=== PATIENT | male | born 1995 | race American Indian/Alaskan Native ===

== ENCOUNTER 2021-05-29 08:32 | Emergency (ER) | payer SELFPAY ==
[2021-05-29] MEDS ORDERED: LORazepam 1 MG Tab PO ONE (08:35)
[2021-05-29] MEDS ORDERED: Alum Hydro/Mag Hydro/Simeth XS 15 ML, Lidocaine 2% 5 ML PO ONE ×2 (08:37)
--- NOTE | 2021-05-29 08:38 | EDM.PDOC ---
ED HPI GENERAL MEDICAL PROBLEM - General Stated Complaint: EMS Time Seen by Provider: 05/29/21 08:34 Source of Information: Reports: Patient, EMS History Limitations: Reports: No Limitations - History of Present Illness INITIAL COMMENTS - FREE TEXT/NARRATIVE: 25-year-old male past medical history anxiety, ADHD presents for presumptive anxiety attack. Patient does endorse drinking heavily last night. He states that he had about 1 pint of vodka. He is staying at a local hotel. He went into the hotel lobby and was apparently acting erratically and asking the hotel staff for help. He was initially refusing EMS but reluctantly agreed for them to call for help around 8 AM. Patient has difficulty describing what he was feeling. He states that his entire body was numb and he felt panicky. He felt short of breath. He notes that symptoms are substantially improved but he still feels very anxious and mildly short of breath. He denies any cough or recent illness. He did say that he was having some chest pain during the episode but has difficulty describing it. - Related Data Allergies Allergy/AdvReac Type Severity Reaction Status Date / Time No Known Allergies Allergy Verified 05/29/21 08:55 Home Meds: Home Meds Lisdexamfetamine Dimesylate [Vyvanse] 10 mg PO 05/29/21 [History] Mirtazapine [Remeron] 15 mg PO 05/29/21 [History] Past Medical History - Past Health History Medical/Surgical History: Denies Medical/Surgical History ED ROS GENERAL - Review of Systems Review Of Systems: Comprehensive ROS is negative, except as noted in HPI. ED EXAM, GENERAL - Physical Exam Exam: See Below Exam Limited By: No Limitations General Appearance: Alert, WD/WN, No Apparent Distress, Anxious Ears: Hearing Grossly Normal Throat/Mouth: Normal Voice, No Airway Compromise Head: Atraumatic, Normocephalic Respiratory/Chest: No Respiratory Distress, Lungs Clear, Normal Breath Sounds, No Accessory Muscle Use Cardiovascular: Normal Peripheral Pulses, Regular Rate, Rhythm GI/Abdominal: Soft, Non-Tender Extremities: Normal Inspection Neurological: Alert, Normal Cognition, Normal Gait Psychiatric: Normal Affect, Normal Mood, Anxious Skin Exam: Warm, Dry, Intact, Normal Color #1 Interpretation EKG Date: 05/29/21 Time: 08:33 Rhythm: NSR Rate (Beats/Min): 75 Burt: Normal P-Wave: Present QRS: Normal ST-T: Normal QT: Normal NJ/PQ Interval: 162 EKG Interpretation Comments: normal EKG, no ischemic changes Course - Vital Signs Last Recorded V/S: Last Vital Signs Temp 97.9 F 05/29/21 08:43 Pulse 89 05/29/21 08:43 Resp 20 05/29/21 08:43 BP 174/107 H 05/29/21 08:43 Pulse Ox 98 05/29/21 08:43 - Orders/Labs/Meds Orders: Active Orders 24 hr Category Date Time Status Saline Lock Insert [OM.PC] Stat Oth 05/29/21 08:35 Ordered Labs: Laboratory Tests 05/29/21 05/29/21 05/29/21 Range/Units 08:40 08:49 08:49 WBC 4.59 (4.0-11.0) K/uL RBC 4.75 (4.50-5.90) M/uL Hgb 14.3 (13.0-17.0) g/dL Hct 41.7 (38.0-50.0) % MCV 87.8 (80.0-98.0) fL MCH 30.1 (27.0-32.0) pg MCHC 34.3 (31.0-37.0) g/dL RDW Std Deviation 43.9 (28.0-62.0) fl RDW Coeff of Sai 14 (11.0-15.0) % Plt Count 136 L (150-400) K/uL MPV 9.40 (7.40-12.00) fL Neut % (Auto) 52.3 (48.0-80.0) % Lymph % (Auto) 39.9 (16.0-40.0) % [place] % (Auto) 5.4 (0.0-15.0) % Eos % (Auto) 2.0 (0.0-7.0) % Baso % (Auto) 0.4 (0.0-1.5) % Neut # (Auto) 2.4 (1.4-5.7) K/uL Lymph # (Auto) 1.8 (0.6-2.4) K/uL [place] # (Auto) 0.3 (0.0-0.8) K/uL Eos # (Auto) 0.1 (0.0-0.7) K/uL Baso # (Auto) 0.0 (0.0-0.1) K/uL Nucleated RBC % 0.0 /100WBC Nucleated RBCs # 0 K/uL Sodium 138 (136-148) mmol/L Potassium 2.8 L (3.5-5.1) mmol/L Chloride 99 (98-107) mmol/L Carbon Dioxide 21.7 (21.0-32.0) mmol/L BUN 11 (7.0-18.0) mg/dL Creatinine 1.0 (0.8-1.3) mg/dL Est Cr Clr Drug Dosing 111.94 mL/min Estimated GFR (MDRD) > 60.0 ml/min Glucose 166 H (74-106) mg/dL Calcium 8.1 L (8.5-10.1) mg/dL Troponin I < 0.050 (0.000-0.056) ng/mL TSH, Ultra Sensitive 2.49 (0.36-3.74) uIU/mL Ethyl Alcohol 168 mg/dL SARS-CoV-2 RNA (MAYANK) NEGATIVE (NEGATIVE) Meds: Medications Discontinued Medications Generic Name Dose Route Start Last Admin Trade Name Freq PRN Reason Stop Dose Admin Alum Alexander/Mag Alexander/Simeth XS 0 ml 05/29/21 08:37 05/29/21 09:00 15 ml/ Lidocaine HCl 5 ml PO 05/29/21 08:38 20 each ONETIME ONE Administration Lorazepam 1 mg 05/29/21 08:35 05/29/21 09:00 Lorazepam 1 Mg Tab PO 05/29/21 08:36 1 mg ONETIME ONE Administration Magnesium Oxide 800 mg 05/29/21 09:35 Magnesium Oxide 400 Mg Tab PO 05/29/21 09:36 ONETIME ONE Potassium Chloride 40 meq 05/29/21 09:34 Potassium Chloride 20 Meq Tab.Er PO 05/29/21 09:35 ONETIME ONE - Re-Assessments/Exams Free Text/Narrative Re-Assessment/Exam: 05/29/21 08:38 Patient's symptoms are suggestive of anxiety attack. Will get basic labs to ensure no medical pathology. Will give Ativan for anxiolysis. Will give GI cocktail for potential gastritis related to alcohol abuse. 05/29/21 09:41 Labs show hypokalemia, magnesium and potassium replacement ordered. Patient symptoms suggestive of panic attack with concrement and alcohol abuse. Patient is not clinically intoxicated and is stable for discharge home. Recommend primary care physician follow-up. Departure - Departure Time of Disposition: 09:41 Disposition: Home, Self-Care 01 Condition: Good Clinical Impression: Alcohol abuse, Panic attack - Discharge Information Instructions: Managing Anxiety, Adult, Alcohol Abuse and Dependence Information, Adult Additional Instructions: The following information is given to patients seen in the emergency department who are being discharged to home. This information is to outline your options for follow-up care. We provide all patients seen in our emergency department with a follow-up referral. The need for follow-up, as well as the timing and circumstances, are variable depending upon the specifics of your emergency department visit. If you don't have a primary care physician on staff, we will provide you with a referral. We always advise you to contact your personal physician following an emergency department visit to inform them of the circumstance of the visit and for follow-up with them and/or the need for any referrals to a consulting specialist. The emergency department will also refer you to a specialist when appropriate. This referral assures that you have the opportunity for follow-up care with a specialist. All of these measure are taken in an effort to provide you with optimal care, which includes your follow-up. Under all circumstances we always encourage you to contact your private physician who remains a resource for coordinating your care. When calling for follow-up care, please make the office aware that this follow-up is from your recent emergency room visit. If for any reason you are refused follow-up, please contact the [facility] Emergency Department at and asked to speak to the emergency department charge nurse. Please follow up with your primary care physician. If you do not have a primary care physician, see below: [facility] [address] [place] [id number] [facility] [address] [place] [address] [facility] [address], [place] [address] Sepsis Event Note (ED) - Focused Exam Vital Signs: Vital Signs Temp Pulse Resp BP Pulse Ox 05/29/21 08:43 97.9 F 89 20 174/107 H 98 - My Orders Last 24 Hours: My Active Orders 05/29/21 08:35 Saline Lock Insert [OM.PC] Stat - Assessment/Plan Last 24 Hours: My Active Orders 05/29/21 08:35 Saline Lock Insert [OM.PC] Stat
--- NOTE | 2021-05-29 09:05 | CR ---
INDICATION: Shortness of breath TECHNIQUE: Single view chest. FINDINGS: The lungs are clear. The heart, mediastinum and pulmonary vessels are of normal size. There is no evidence of pleural disease. IMPRESSION: Negative chest. Dictated by Keysha Galvan MD @ 05/29/2021 9:04:04 AM (Electronically Signed)
[2021-05-29 09:32] LABS: BLOOD UREA NITROGEN,BUN 11 mg/dL (7.0-18.0); CARBON DIOXIDE,CO2 21.7 mmol/L (21.0-32.0); CHLORIDE,CL 99 mmol/L (98-107); GLUCOSE RANDOM 166 mg/dL (74-106); POTASSIUM,K 2.8 mmol/L (3.5-5.1); SODIUM,NA 138 mmol/L (136-148)
[2021-05-29] MEDS ORDERED: Potassium Chloride 20 MEQ Tab.ER PO ONE (09:34)
[2021-05-29] MEDS ORDERED: Magnesium Oxide 400 MG Tab PO ONE (09:35)
[2021-05-29 09:49] VITALS: BP 158/101; PULSE 110
== END 2021-05-29 09:51 | disposition home or self-care (01) ==
LOC: MW.ED 08:32
DX: F41.0 Panic disorder [episodic paroxysmal anxiety] (principal); F10.10 Alcohol abuse, uncomplicated; Y90.6 Blood alcohol level of 120-199 mg/100 ml; Z20.822 Contact with and (suspected) exposure to COVID-19
CPT/HCPCS: 36415; 71045; 80048; 80307; 84443; 84484; 85025; 87635; 93005; 99285; A9270; U0002

== ENCOUNTER 2021-05-30 01:19 | Emergency (ER) | payer OTHER ==
[2021-05-30] MEDS ORDERED: Lactated Ringers 1,000 ML IV ONE (01:30)
[2021-05-30] MEDS ORDERED: Ondansetron 4 MG/2 ML SDV IVPUSH ONE (01:31)
[2021-05-30] MEDS ORDERED: ALPRAZolam 0.5 MG Tab PO ONE (01:41)
--- NOTE | 2021-05-30 02:04 | EDM.PDOC ---
ED HPI GENERAL MEDICAL PROBLEM - General Chief Complaint: General Stated Complaint: CRAMPING ON BELLY AREA Time Seen by Provider: 05/30/21 01:32 - History of Present Illness INITIAL COMMENTS - FREE TEXT/NARRATIVE: CHIEF COMPLAINT(S): Multiple complaints HISTORY OF PRESENT ILLNESS: This is a 25-year-old man with a past medical history of ADHD and insomnia on Vyvanse and mirtazapine with recent visit for alcohol intoxication and anxiety/panic attack who comes to the emergency department with a chief complaint of multiple complaints. The patient states that he was here this morning and he returns because he developed shortness of breath instantly and felt like his whole torso was tingling and cramping. He states that he then became weak in his knees and had tingling in his hands and his ears became numb. He states that he feels like his whole body is cramping and then he went into a panic attack. He does not know what is going on. He denies any daily alcohol use and denies any history of alcohol withdrawal. REVIEW OF SYSTEMS: Constitutional: Denies fever, chills. Eyes: Denies eye pain Ears, Nose, Mouth, & Throat: Denies earache Cardiovascular: Denies chest pain Respiratory: Positive for shortness of breath Gastrointestinal: Denies Nausea, vomiting, diarrhea, hematochezia. Genitourinary: Denies hematuria Skin:Denies a rash MSK: Positive for total body cramping. Neurological: Positive for total body paresthesias. Denies blurred vision Psychiatric: Positive for ADHD and insomnia PAST MEDICAL HISTORY: As per history of present illness and as reviewed below otherwise noncontributory. SURGICAL HISTORY: As per history of present illness and as reviewed below otherwise noncontributory. SOCIAL HISTORY: As per history of present illness and as reviewed below otherwise noncontributory. FAMILY HISTORY: As per history of present illness and as reviewed below otherwise noncontributory. EXAMINATION OF ORGAN SYSTEMS/BODY AREAS: Constitutional: Blood pressure is 167/100, heart rate 88, respiratory rate 20 with an oxygen saturation 9 9% on room air. Temperature 36.2 General: Well-appearing man who is in no acute distress Psychiatric: Appears anxious. Cooperative Eyes: No scleral icterus or conjunctival erythema ENMT: Moist mucous membranes. No pharyngeal erythema Cardiovascular: Regular, rate, and rhythm. No gallops, murmurs, or rubs. Bilateral upper extremity pulses symmetric and intact. No peripheral edema. No JVD. Respiratory: Lungs clear to auscultation bilaterally. No wheezes, rales, or rhonchi. Gastrointestinal: Soft, non-tender, non-distended. Normoactive bowel sounds Genitourinary: No suprapubic tenderness Musculoskeletal: Normal range of motion. Skin: No lesions or abrasions. Neurological: Alert, GCS 15 strength and sensation grossly intact in upper and lower extremities bilaterally. MEDICAL DECISION MAKING AND COURSE IN THE ED WITH INTERPRETATION/REVIEW OF DIAGNOSTIC STUDIES: This is a 25-year-old man with a past medical history of ADHD and insomnia with a recent emergency department visit for alcohol intoxication found to have anxiety/panic attack who comes to the emergency department with what appears to be an additional panic attack. The patient is cooperative at this time. Given his electrolyte abnormalities this morning will obtain repeat electrolyte panel. We will provide the patient with Xanax by mouth and reevaluate. I do not believe any further labs or imaging are indicated. The patient symptoms cannot logically be placed together at this time. CMP reveals hyponatremia at 137, hypochloremia 97, hyperglycemia 150, transaminitis with an AST of 278 and ALT of 305. Total bilirubin is elevated 1.8 and there is an elevation in CK at 604. Hypomagnesemia 1.5. On reevaluation the patient stated that he has had hallucinations from alcohol in the past. He states that this is what he is experiencing. At this time the patient CIWA is very low. His labs indicate likely alcoholic hepatitis. We provided the patient with magnesium oxide for replenishment. We will provide patient with Librium here in the emergency department. I did discuss with him that we would provide him with Librium for symptomatic treatment of alcohol withdrawal given that his alcohol withdrawal is mild. I encouraged the patient to follow-up with primary care physician for alcoholic rehab. He was amenable to discharge at this time and no further questions. He was given strict return precautions DISPOSITION: The patient was discharged home in stable condition. The patient will follow up with primary care physician in 3 to 5 days CONDITION: Fair PROCEDURES: None FINAL IMPRESSION(S)/DIAGNOSES: 1. Acute mild alcohol withdrawal 2. Acute hypomagnesemia likely secondary to alcohol use Deo Beasley M.D. - Related Data Allergies Allergy/AdvReac Type Severity Reaction Status Date / Time No Known Allergies Allergy Verified 05/30/21 01:32 Home Meds: Home Meds Lisdexamfetamine Dimesylate [Vyvanse] 10 mg PO 05/29/21 [History] Mirtazapine [Remeron] 15 mg PO 05/29/21 [History] chlordiazePOXIDE [Librium] 5 mg PO TID PRN #6 cap 05/30/21 [Rx] Past Medical History - Past Health History Medical/Surgical History: Denies Medical/Surgical History Psychiatric History: Reports: Anxiety Social & Family History - Family History Family Medical History: No Pertinent Family History - Recreational Drug Use Recreational Drug Use: No ED ROS GENERAL - Review of Systems Review Of Systems: See Below ED EXAM, GENERAL - Physical Exam Exam: See Below Course - Vital Signs Last Recorded V/S: Last Vital Signs Temp 36.8 C 05/30/21 04:18 Pulse 77 05/30/21 04:18 Resp 17 05/30/21 04:18 BP 157/94 H 05/30/21 04:18 Pulse Ox 98 05/30/21 04:18 - Orders/Labs/Meds Labs: Laboratory Tests 05/30/21 Range/Units 01:56 Sodium 135 L (136-148) mmol/L Potassium 4.2 (3.5-5.1) mmol/L Chloride 97 L (98-107) mmol/L Carbon Dioxide 23.0 (21.0-32.0) mmol/L BUN 11 (7.0-18.0) mg/dL Creatinine 1.0 (0.8-1.3) mg/dL Est Cr Clr Drug Dosing TNP Estimated GFR (MDRD) > 60.0 ml/min Glucose 150 H (74-106) mg/dL Calcium 9.2 (8.5-10.1) mg/dL Magnesium 1.5 L (1.8-2.4) mg/dL Total Bilirubin 1.8 H (0.2-1.0) mg/dL AST 278 H (15-37) IU/L ALT 305 H (14-63) IU/L Alkaline Phosphatase 108 (46-116) U/L Creatine Kinase 604 H (26-308) U/L Total Protein 7.8 (6.4-8.2) g/dL Albumin 3.9 (3.4-5.0) g/dL Globulin 3.9 (2.6-4.0) g/dL Albumin/Globulin Ratio 1.0 (0.9-1.6) Meds: Medications Discontinued Medications Generic Name Dose Route Start Last Admin Trade Name Freq PRN Reason Stop Dose Admin Alprazolam 0.5 mg 05/30/21 01:41 05/30/21 02:18 Alprazolam 0.5 Mg Tab PO 05/30/21 01:42 0.5 mg NOW ONE Administration Chlordiazepoxide HCl 10 mg 05/30/21 03:42 Chlordiazepoxide 10 Mg Cap PO 05/30/21 03:43 ONETIME ONE Lactated Ringer's 1,000 mls @ 999 mls/hr 05/30/21 01:30 05/30/21 02:24 Ringers, Lactated IV 05/30/21 02:30 Not Given .BOLUS ONE Magnesium Oxide 800 mg 05/30/21 02:27 05/30/21 02:29 Magnesium Oxide 400 Mg Tab PO 05/30/21 02:28 800 mg ONETIME ONE Administration Ondansetron HCl 4 mg 05/30/21 01:31 05/30/21 02:24 Ondansetron 4 Mg/2 Ml Sdv IVPUSH 05/30/21 01:32 Not Given ONETIME ONE Departure - Departure Time of Disposition: 03:44 Disposition: Home, Self-Care 01 Condition: Fair Clinical Impression: Alcohol withdrawal, Hypomagnesemia - Discharge Information *PRESCRIPTION DRUG MONITORING PROGRAM REVIEWED*: No *COPY OF PRESCRIPTION DRUG MONITORING REPORT IN PATIENT CATHY: No Prescriptions: chlordiazePOXIDE [Librium] 5 mg PO TID PRN #6 cap PRN Reason: Withdrawal Symptoms Instructions: Hypomagnesemia, Alcohol Withdrawal Syndrome, [id number] Referrals: PCP,None [Primary Care Provider] - Forms: ED Department Discharge Additional Instructions: You were evaluated today on an emergent basis. At this time your labs did reveal some liver abnormalities suggestive of your recent alcohol use. In discussion with you given your prior history of mild alcohol withdrawal I do believe the symptoms are likely due to some mild alcohol withdrawal. We did provide you with Librium here. I did prescribe you Librium which can be picked up at and pharmacy tomorrow at noon. Please use 5 mg 3 times a day as needed for withdrawal symptoms. You do have mild symptoms only use it if needed. As recommended please take a multivitamin daily and follow-up with [facility] physician for continued alcohol cessation programs. [facility] [address] [place] [address] [facility] [address] [place] [address] The patient is informed of any results of their evaluation and diagnostic workup and all questions are answered. They are given discharge instructions and return precautions. The patient is stable for discharge. The patient states they understand and agree with the plan and that they will return if their symptoms get worse or if they have any new concerns. The following information is given to patients seen in the emergency department who are being discharged to home. This information is to outline your options for follow-up care. We provide all patients seen in our emergency department with a follow-up referral. The need for follow-up, as well as the timing and circumstances, are variable depending upon the specifics of your emergency department visit. If you don't have a primary care physician on staff, we will provide you with a referral. We always advise you to contact your personal physician following an emergency department visit to inform them of the circumstance of the visit and for follow-up with them and/or the need for any referrals to a consulting specialist. The emergency department will also refer you to a specialist when appropriate. This referral assures that you have the opportunity for follow-up care with a specialist. All of these measure are taken in an effort to provide you with optimal care, which includes your follow-up. Under all circumstances we always encourage you to contact your private ph ysician who remains a resource for coordinating your care. When calling for follow-up care, please make the office aware that this follow-up is from your recent emergency room visit. If for any reason you are refused follow-up, please contact the [facility] Emergency Department at and asked to speak to the emergency department charge nurse. Sepsis Event Note (ED) - Evaluation Sepsis Screening Result: No Definite Risk
[2021-05-30 02:22] LABS: BLOOD UREA NITROGEN,BUN 11 mg/dL (7.0-18.0); CHLORIDE,CL 97 mmol/L (98-107); GLUCOSE RANDOM 150 mg/dL (74-106); POTASSIUM,K 4.2 mmol/L (3.5-5.1); SODIUM,NA 135 mmol/L (136-148)
[2021-05-30] MEDS ORDERED: Magnesium Oxide 400 MG Tab PO ONE (02:27)
[2021-05-30] MEDS ORDERED: chlordiazePOXIDE 10 MG Cap PO ONE (03:42)
[2021-05-30 04:19] VITALS: BP 157/94; PULSE 77
== END 2021-05-30 04:19 | disposition home or self-care (01) ==
LOC: MW.ED 01:19
DX: F10.239 Alcohol dependence with withdrawal, unspecified (principal); E83.42 Hypomagnesemia
CPT/HCPCS: 36415; 80053; 82550; 83735; 99284; A9270

== ENCOUNTER 2021-10-24 22:02 | Emergency (ER) | payer OTHER ==
[2021-10-24 22:26] VITALS: BP 150/97; PULSE 102
[2021-10-24] MEDS ORDERED: Ibuprofen 600 MG Tab PO ONE (22:35)
[2021-10-24] MEDS ORDERED: Cyclobenzaprine 10 MG Tab PO ONE (22:39)
== END 2021-10-24 22:49 | disposition home or self-care (01) ==
LOC: MW.ED 22:02
DX: M25.512 Pain in left shoulder (principal); M25.562 Pain in left knee; M25.522 Pain in left elbow
CPT/HCPCS: 99283; A9270

== ENCOUNTER 2022-04-10 17:05 | Emergency (ER) | payer OTHER ==
[2022-04-10 17:23] VITALS: BP 149/98
[2022-04-10 17:42] VITALS: PULSE 129
== END 2022-04-10 17:42 ==
LOC: MW.ED 17:05
DX: Z02.89 Encounter for other administrative examinations (principal); Z79.899 Other long term (current) drug therapy
CPT/HCPCS: 99283

== ENCOUNTER 2022-06-11 16:34 | Emergency (ER) | payer SELFPAY ==
[2022-06-11 16:58] VITALS: BP 140/79; PULSE 112
== END 2022-06-11 17:15 | disposition home or self-care (01) ==
LOC: MW.ED 16:34 → MERGE 16:34 → MW.ED 17:15
DX: Z02.89 Encounter for other administrative examinations (principal)
CPT/HCPCS: 82947; 99283

== ENCOUNTER 2024-03-07 15:42 | Emergency (ER) | payer OTHER | END 2024-03-07 15:45 | disposition left against medical advice (07) | LOC: MW.ED 15:42 | DX: Z53.21 Procedure and treatment not carried out due to patient leaving prior to being seen by health care provider (principal) ==

== ENCOUNTER 2024-07-16 05:30 | Emergency (ER) | payer OTHER ==
[2024-07-16] MEDS: Ibuprofen 600 MG Tab PO ONE (05:50)
[2024-07-16] MEDS: Acetaminophen 500 MG Tab PO ONE (05:50)
[2024-07-16 07:15] VITALS: BP 136/81; PULSE 95
== END 2024-07-16 07:15 ==
LOC: MW.ED 05:30
DX: S82.391A Other fracture of lower end of right tibia, initial encounter for closed fracture (principal); S82.831A Other fracture of upper and lower end of right fibula, initial encounter for closed fracture; E11.9 Type 2 diabetes mellitus without complications; Z79.899 Other long term (current) drug therapy; W00.0XXA Fall on same level due to ice and snow, initial encounter
CPT/HCPCS: 29515; 73610; 99283; A9270

== ENCOUNTER 2024-07-19 10:38 | Day surgery (SDC) | payer MEDICAID, OTHER ==
[~2024-07-19 10:38] MED LIST: Albuterol 0.083% 2.5 MG/3 ML Neb Soln NEB PRN; HYDROmorphone 1 MG/ML Syringe IVPUSH PRN; Metoclopramide 10 MG/2 ML SDV IVPUSH PRN; Morphine 2 MG/ML SYRINGE IVPUSH PRN; Naloxone 0.4 MG/ML SDV IVPUSH PRN; Ondansetron 4 MG/2 ML SDV IVPUSH PRN; Phenylephrine HCl In 0.9% NaCl 1 MG/10 ML Syringe IVPUSH PRN; fentaNYL 50 MCG/ML SDV IVPUSH PRN
[2024-07-19] MEDS ORDERED: Lidocaine 2% 5 ML SDV ONE (11:16)
[2024-07-19] MEDS ORDERED: Ropivacaine 0.5% 5 MG/ML 30 ML SDV ONE (11:17)
[2024-07-19] MEDS ORDERED: Famotidine 20 MG/2 ML SDV ONE (11:17)
[2024-07-19] MEDS: Lactated Ringers 1,000 ML IV SCH (11:20)
[2024-07-19] MEDS ORDERED: ceFAZolin 2 GM in Sodium Chloride 0.9% 50 ML IV ONE (12:00)
[2024-07-19] MEDS ORDERED: fentaNYL 100 MCG/2 ML SDV ONE (12:03)
[2024-07-19] MEDS ORDERED: Midazolam 1 MG/ML 2 ML SDV ONE (12:19)
[2024-07-19] MEDS ORDERED: Ketamine HCL/NACL, ISO-OSM 50 MG/5 ML Syringe ONE ×2 (12:30→12:48)
[2024-07-19] MEDS ORDERED: propofoL 500 MG/50 ML 50 ML ONE ×2 (12:30→13:06)
[2024-07-19] MEDS ORDERED: ceFAZolin 2 GM Vial ONE (12:37)
[2024-07-19] MEDS ORDERED: Lidocaine 2% 11 ML Jelly Filled Syringe ONE (12:43)
[2024-07-19] MEDS ORDERED: Ondansetron 4 MG/2 ML SDV ONE (13:52)
[2024-07-19 15:46] VITALS: BP 135/82; PULSE 59
== END 2024-07-19 17:00 | disposition home or self-care (01) ==
LOC: MW.SDS 10:38
PROVIDERS: ATTEND Orthopaedic Surgery
DX: S82.61XA Displaced fracture of lateral malleolus of right fibula, initial encounter for closed fracture (principal); E66.9 Obesity, unspecified; Z68.36 Body mass index [BMI] 36.0-36.9, adult; Z79.899 Other long term (current) drug therapy
CPT/HCPCS: 27792; 36415; 76000; 85049; A9270; C1713; C1776; J0690; J2003; J2250; J2405; J2704; J2795; J3010; J7120; 01480; 64447; J3490

== ENCOUNTER 2024-08-22 00:38 | Emergency (ER) | payer MEDICAID ==
[2024-08-22 00:48] VITALS: BP 139/84; PULSE 107
== END 2024-08-22 01:30 ==
LOC: MW.ED 00:38
DX: Z02.89 Encounter for other administrative examinations (principal); F17.210 Nicotine dependence, cigarettes, uncomplicated; Z75.8 Other problems related to medical facilities and other health care; Z79.899 Other long term (current) drug therapy
CPT/HCPCS: 99282; 99283

== ENCOUNTER 2024-09-05 00:15 | Emergency (ER) | payer MEDICAID ==
[2024-09-05 00:40] VITALS: BP 133/94; PULSE 113
== END 2024-09-05 00:58 | disposition left against medical advice (07) ==
LOC: MW.ED 00:15
DX: Z53.21 Procedure and treatment not carried out due to patient leaving prior to being seen by health care provider (principal)

== ENCOUNTER 2024-09-05 10:08 | Emergency (ER) | payer MEDICAID ==
[2024-09-05 10:48] VITALS: BP 171/101; PULSE 99
[2024-09-05 11:14] LABS: BASOPHILS ABSOLUTE AUTO 0.03 K/uL (0.00-0.20); BASOPHILS PERCENT AUTO 0.5 % (0.0-1.0); EOSINOPHILS ABSOLUTE AUTO 0.03 K/uL (0.00-0.45); EOSINOPHILS PERCENT AUTO 0.5 % (0.0-6.0); HEMATOCRIT 41.1 % (42.0-52.0); HEMOGLOBIN 14.6 g/dL (14.0-18.0); IMMATURE GRAN ABSOLUTE AUTO 0.03 K/uL (0.00-0.05); IMMATURE GRAN PERCENT AUTO 0.5 % (0.0-0.4); LYMPHOCYTES ABSOLUTE AUTO 2.12 K/uL (1.00-4.80); LYMPHOCYTES PERCENT AUTO 35.5 % (24.0-44.0); MEAN CORPUSCULAR HEMOGLOBIN 30.4 pg (28.0-32.0); MEAN CORPUSCULAR HGB CONC 35.5 g/dL (32.0-36.0); MEAN CORPUSCULAR VOLUME 85.6 fL (83.0-99.0); MEAN PLATELET VOLUME 8.6 fL (9.4-12.4); MONOCYTES ABSOLUTE AUTO 0.29 K/uL (0.00-0.80); MONOCYTES PERCENT AUTO 4.8 % (0.0-8.0); NEUTROPHILS ABSOLUTE AUTO 3.48 K/uL (1.80-7.70); NEUTROPHILS PERCENT AUTO 58.2 % (41.0-71.0); PLATELET COUNT,PLT 226 K/uL (150-400); WHITE BLOOD CELL COUNT,WBC 5.98 K/uL (3.9-11.3)
[2024-09-05 11:17] LABS: APPEARANCE,URINE CLEAR; BILIRUBIN,URINE NEGATIVE (NEGATIVE); COLOR,URINE YELLOW; GLUCOSE,URINE NEGATIVE (NEGATIVE); KETONES,URINE NEGATIVE (NEGATIVE); LEUKOCYTE ESTERASE,URINE NEGATIVE (NEGATIVE); NITRITE,URINE NEGATIVE (NEGATIVE); OCCULT BLOOD,URINE NEGATIVE (NEGATIVE); PH,URINE 7.5 (5.0-8.0); PROTEIN,URINE NEGATIVE (NEGATIVE); UROBILINOGEN,URINE 0.2 EU/dL (<2.0)
[2024-09-05 11:25] LABS: AMPHETAMINES SCREEN, URINE NEGATIVE (CUTOFF=500); BARBITURATE SCREEN,URINE NEGATIVE (CUTOFF=200); BENZODIAZEPINES SCREEN,URINE NEGATIVE (CUTOFF=150); BUPRENORPHINE SCREEN,URINE NEGATIVE (CUTOFF=10); METHADONE SCREEN, URINE NEGATIVE (CUTOFF=200); METHAMPHETAMINES SCREEN, URINE NEGATIVE (CUTOFF=500); OXYCODONE SCREEN,URINE NEGATIVE (CUT0FF=100); PCP SCREEN,URINE NEGATIVE (CUTOFF=25); THC SCREEN,URINE 20 NG/ML NEGATIVE (CUTOFF=50)
[2024-09-05 11:54] LABS: ACETAMINOPHEN <2.0 ug/mL; ALANINE AMINOTRANSFERASE,ALT 27 IU/L (14-63); ALBUMIN 3.7 g/dL (3.4-5.0); ALKALINE PHOSPHATASE 117 U/L (46-116); ASPARTATE AMNIOTRANSFERASE,AST 28 IU/L (15-37); BILIRUBIN TOTAL 0.5 mg/dL (0.2-1.0); BLOOD UREA NITROGEN,BUN 12 mg/dL (7.0-18.0); CALCIUM 7.6 mg/dL (8.5-10.1); CARBON DIOXIDE,CO2 23.7 mmol/L (21.0-32.0); CHLORIDE,CL 102 mmol/L (98-107); EST CRCL DRUG DOSING (CG) 108.01 mL/min; ETHANOL BLOOD MEDICAL 246 mg/dL; GLUCOSE RANDOM 136 mg/dL (74-106); POTASSIUM,K 3.9 mmol/L (3.5-5.1); PROTEIN TOTAL,TP 7.3 g/dL (6.4-8.2); SALICYLATE 0.3 mg/dL (0.0-20.0); SODIUM,NA 142 mmol/L (136-148); TSH ULTRASENSITIVE 0.97 uIU/mL (0.36-3.74)
[2024-09-05 11:58] LABS: ESTIMATED GFR 104 mL/min (>60)
== END 2024-09-05 14:37 ==
LOC: MW.ED 10:08
DX: R45.851 Suicidal ideations (principal); E66.9 Obesity, unspecified; Z75.3 Unavailability and inaccessibility of health-care facilities; Z79.899 Other long term (current) drug therapy; Z68.34 Body mass index [BMI] 34.0-34.9, adult
CPT/HCPCS: 36415; 80053; 80143; 80179; 80305; 80307; 81003; 84443; 85025; 87428-QW; 93005; 99283; 99285